=== PATIENT | female | born 1980 | race Asian ===

== ENCOUNTER 2017-01-07 05:10 | Inpatient (IN) | payer SELFPAY ==
[2017-01-06 11:31] LABS: BASOPHILS % (AUTO) 0.3 % (0.0-2.0); EOSINOPHILS # (AUTO) 0.1 K/uL (0.0-0.4); EOSINOPHILS % (AUTO) 1.5 % (0.0-4.0); HEMOGLOBIN 11.8 g/dL (12.0-16.0); LYMPHOCYTES # (AUTO) 1.6 K/uL (1.0-5.5); LYMPHOCYTES % (AUTO) 20.6 % (20.5-51.5); MEAN CORPUSCULAR HEMOGLOBIN 31 pg (27-31); MEAN CORPUSCULAR HGB CONC 35 % (32-36); MEAN CORPUSCULAR VOLUME 91 fL (79.0-98.0); MONOCYTES # (AUTO) 0.6 K/uL (0.0-1.0); NEUTROPHILS # (AUTO) 5.2 K/uL (1.8-7.7); NEUTROPHILS % (AUTO) 69.6 % (40.0-70.0); PLATELET COUNT (AUTO) 196 K/uL (130-430); RED BLOOD CELL COUNT(AUTO) 3.74 MIL/uL (4.2-6.2); RED CELL DISTRIBUTION WIDTH 12.7 % (9.0-15.0); WHITE BLOOD COUNT (AUTO) 7.5 K/uL (4.8-10.8)
[~2017-01-07] VITALS: Ht 160 cm; Wt 62.6 kg
[2017-01-07 06:06] VITALS: BP_SYST 109
[2017-01-07] MEDS ORDERED: LR 1,000 ML IV ONE (06:28)
[2017-01-07] MEDS ORDERED: CITRIC ACID/SODIUM CITRATE 30 ML UDC PO ONE (06:30)
[2017-01-07] MEDS ORDERED: CEFAZOLIN 2 GM IVPB PREMIX 50 ML IV ONE ×2 (06:30→07:11)
[2017-01-07] MEDS ORDERED: FLU VACC QS 2017-18(36MOS+)/PF 0.5 ML/SYR SYRINGE I.M. PRN (07:00)
[2017-01-07] MEDS ORDERED: NS IRRIG SOLN 1000 ML IR ONE (07:11)
[2017-01-07] MEDS ORDERED: DEXAMETHASONE SOD PHOSPHATE 4 MG/ML VIAL IVP ONE (07:11)
[2017-01-07] MEDS ORDERED: LIDOCAINE/EPI 2% 1:100000 20 ML VIAL INJ ONE (07:11)
[2017-01-07] MEDS ORDERED: MORPHINE SULFATE 10MG/10ML PF AMP EP ONE (07:11)
[2017-01-07] MEDS ORDERED: OXYTOCIN 10 UNIT/ML VIAL IV ONE (07:11)
[2017-01-07] MEDS ORDERED: fentaNYL CITRATE/PF 100 MCG/2 ML AMP IVP ONE (07:11)
[2017-01-07] MEDS ORDERED: LR 1,000 ML IV.SOLN IV ONE (07:11)
[2017-01-07 08:40] VITALS: BP_SYST 98
[2017-01-07] MEDS ORDERED: OXYTOCIN/NORMAL SALINE 1,000 ML IV ONE ×2 (08:56→09:27)
[2017-01-07] MEDS ORDERED: HYDROcodone/ACETAMIN 5-325 MG TAB (NORCO/ VICODIN) PO PRN (09:00)
[2017-01-07] MEDS ORDERED: OXYCODONE/ACETAMINOPHEN 5-325 TABLET PO PRN ×2 (09:00)
[2017-01-07] MEDS ORDERED: ANUSOL 1 EA SUPP.RECT (PREPARATION H) RC PRN (09:00)
[2017-01-07] MEDS ORDERED: LANOLIN 7 GM OINT. TP PRN (09:00)
[2017-01-07] MEDS ORDERED: MEASLES,MUMPS&RUBELLA VACC/PF 12500 UNIT/0.5 ML VIAL SUBQ PRN (09:00)
[2017-01-07] MEDS: CEFAZOLIN 1 GM IVPB PREMIX 50 ML IV SCH ×2 (14:24→20:28)
[2017-01-07] MEDS ORDERED: TEMAZEPAM 15 MG CAPSULE PO PRN (21:00)
[2017-01-08] MEDS: CEFAZOLIN 1 GM IVPB PREMIX 50 ML IV SCH (02:01)
[2017-01-08] MEDS: IBUPROFEN 600 MG TABLET PO SCH ×4 (05:25→23:52)
[2017-01-08 07:22] LABS: BASOPHILS % (AUTO) 0.1 % (0.0-2.0); EOSINOPHILS % (AUTO) 0.4 % (0.0-4.0); HEMATOCRIT 26.4 % (36-48); HEMOGLOBIN 8.9 g/dL (12.0-16.0); LYMPHOCYTES # (AUTO) 1.9 K/uL (1.0-5.5); LYMPHOCYTES % (AUTO) 16.4 % (20.5-51.5); MEAN CORPUSCULAR HEMOGLOBIN 30 pg (27-31); MEAN CORPUSCULAR HGB CONC 34 % (32-36); MEAN CORPUSCULAR VOLUME 90 fL (79.0-98.0); MONOCYTES # (AUTO) 0.7 K/uL (0.0-1.0); MONOCYTES % (AUTO) 5.8 % (1.7-9.3); NEUTROPHILS # (AUTO) 9.1 K/uL (1.8-7.7); NEUTROPHILS % (AUTO) 77.3 % (40.0-70.0); PLATELET COUNT (AUTO) 189 K/uL (130-430); RED BLOOD CELL COUNT(AUTO) 2.95 MIL/uL (4.2-6.2); RED CELL DISTRIBUTION WIDTH 12.8 % (9.0-15.0)
[2017-01-08 07:24] LABS: WHITE BLOOD COUNT (AUTO) 11.8 K/uL (4.8-10.8)
[2017-01-08] MEDS: DOCUSATE SODIUM 100 MG CAPSULE PO PRN ×2 (09:46→22:51)
[2017-01-08] MEDS: SIMETHICONE 80 MG TAB.CHEW PO PRN (09:47)
[2017-01-09] MEDS: IBUPROFEN 600 MG TABLET PO SCH ×2 (06:01→12:03)
[2017-01-09] MEDS: DOCUSATE SODIUM 100 MG CAPSULE PO PRN (08:10)
[2017-01-09] MEDS: SIMETHICONE 80 MG TAB.CHEW PO PRN (08:10)
== END 2017-01-09 17:20 | disposition home or self-care (01) | DRG 766 ==
LOC: SPU 05:10
PROVIDERS: ADMIT Obstetrics & Gynecology; ATTEND Obstetrics & Gynecology
PROC: 10D00Z1 Extraction of Products of Conception, Low, Open Approach (ICD-10-PCS; principal; 2017-01-07 07:30)
DX: O44.03 Complete placenta previa NOS or without hemorrhage, third trimester (principal); Z37.0 Single live birth; Z3A.38 38 weeks gestation of pregnancy
CPT/HCPCS: 36415; 85025; 86886; 86900; 86901; 94760; J0690; J1100; J2274; J2590; J3010; J7120